=== PATIENT | female | born 1940 | race Caucasian/White ===

== ENCOUNTER 2017-02-24 06:55 | Day surgery (SDC) | payer MEDICARE ==
[~2017-02-24] VITALS: Ht 165.1 cm; Wt 69.4 kg
[~2017-02-24 06:55] MED LIST: ADVIL200 MG PO; ASPIRIN ADULT L81 MG PO; CALCIUM + D600 MG PO; LEVOTHYROXIN50 MC1 PO; MULTI PO
[2017-02-24 09:18] VITALS: BP 162/80
== END 2017-02-24 09:20 | disposition home or self-care (01) ==
LOC: ENDO 06:55
PROVIDERS: ATTEND Surgery
PROC: 0DBN8ZX Excision of Sigmoid Colon, Via Natural or Artificial Opening Endoscopic, Diagnostic (ICD-10-PCS; principal; 2017-02-24)
DX: Z12.11 Encounter for screening for malignant neoplasm of colon (principal); D12.5 Benign neoplasm of sigmoid colon; K57.30 Diverticulosis of large intestine without perforation or abscess without bleeding; E03.9 Hypothyroidism, unspecified